=== PATIENT | female | born 1955 | race Caucasian/White ===

== ENCOUNTER → 2018-07-05 | Outpatient (REF) | payer BC, MEDICARE | END | disposition home or self-care (01) | DRG 301 | LOC: ULTRASND 09:14 | PROVIDERS: ATTEND Surgery Vascular Surgery | DX: I73.9 Peripheral vascular disease, unspecified (principal); Z91.81 History of falling ==

== ENCOUNTER 2019-01-19 14:43 | Emergency (ER) | payer BC, MEDICARE ==
[~2019-01-19] VITALS: Ht 170.2 cm; Wt 78.0 kg
[2019-01-19] MEDS ORDERED: PLAVIX75 MG PO (15:12)
[2019-01-19] MEDS ORDERED: METOPROL TAR25 MG PO (15:12)
[2019-01-19] MEDS ORDERED: LANTUS SOL100 UNIT/M SC (15:13)
[2019-01-19] MEDS ORDERED: AUGMENTIN875TAB PO (15:26)
[2019-01-19] MEDS ORDERED: MUPIROCIN2 % EX (15:26)
[2019-01-19 15:35] VITALS: BP 13/77
== END 2019-01-19 15:39 | disposition home or self-care (01) | DRG 605 ==
LOC: ED 14:43
DX: S61.232A Puncture wound without foreign body of right middle finger without damage to nail, initial encounter (principal); L08.9 Local infection of the skin and subcutaneous tissue, unspecified; W26.8XXA Contact with other sharp object(s), not elsewhere classified, initial encounter; Y93.K9 Activity, other involving animal care; Y92.009 Unspecified place in unspecified non-institutional (private) residence as the place of occurrence of the external cause